=== PATIENT | female | born 1965 | race Caucasian/White ===

== ENCOUNTER → 2023-06-14 11:13 | Outpatient (REF) | payer BC, SELFPAY | LOC: DHCBC/DCA 11:13 | PROVIDERS: ATTENDING PHYSICIAN Internal Medicine | DX: Z01.818 Encounter for other preprocedural examination (principal); R94.31 Abnormal electrocardiogram [ECG] [EKG] | CPT/HCPCS: 78452; 93017; A9500; J2785 ==

== ENCOUNTER → 2023-10-03 13:17 | Outpatient (REF) | payer BC, SELFPAY | LOC: HWWDC 13:17 | PROVIDERS: ATTENDING PHYSICIAN Internal Medicine; REFERRING PHYSICIAN Obstetrics & Gynecology Gynecology | DX: Z12.31 Encounter for screening mammogram for malignant neoplasm of breast (principal) | CPT/HCPCS: 77063; 77067 ==

== ENCOUNTER 2025-01-24 13:22 | Emergency (ER) | payer BC, SELFPAY ==
[2025-01-24 13:26] VITALS: BP 208/124
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
[2025-01-24] MEDS: MOTRIN 600 MG PO (14:10)
[2025-01-24] MEDS: NORCO 5/325 1 TABLET PO (14:10)
== END 2025-01-24 14:38 | disposition home or self-care (01) ==
LOC: EMR 13:22
PROVIDERS: EMERGENCY PHYSICIAN Emergency Medicine; FAMILY PHYSICIAN Internal Medicine
DX: T23.252A Burn of second degree of left palm, initial encounter (principal); T23.251A Burn of second degree of right palm, initial encounter; X10.2XXA Contact with fats and cooking oils, initial encounter
CPT/HCPCS: 99283